=== PATIENT | female | born 1960 | race Caucasian/White ===

== ENCOUNTER 2017-09-19 07:12 | Day surgery (SDC) | payer MEDICARE, OTHER ==
[2017-09-11 12:21] LABS: APPEARANCE,URINE SLIGHTLY-CLOUDY; BILIRUBIN,URINE NEGATIVE (NEGATIVE); GLUCOSE, URINE NEGATIVE (NEGATIVE); KETONES,URINE NEGATIVE (NEGATIVE); LEUKOCYTE ESTERASE,URINE NEGATIVE (NEGATIVE); NITRITE,URINE NEGATIVE (NEGATIVE); PROTEIN,URINE NEGATIVE (NEGATIVE); UROBILINOGEN,URINE NEGATIVE mg/dL (<2.0)
[2017-09-11 12:28] LABS: ABSOLUTE BASOPHILS # (AUTO) 0.1 10^3/uL (0.0-0.2); ABSOLUTE EOSINOPHILS # (AUTO) 0.1 10^3/uL (0.0-0.6); ABSOLUTE MONOCYTES (AUTO) 0.5 10^3/uL (0.1-1.4); ABSOLUTE NEUT (AUTO) 4.6 10^3/uL (1.7-8.2); BASOPHILS % (AUTO) 1.1 % (0-2); EOSINOPHILS % (AUTO) 1.7 % (0-6); HEMATOCRIT 40.6 % (36.0-47.0); HEMOGLOBIN 13.6 g/dL (12.0-15.5); HGB HCT DIFFERENCE 0.2; MEAN CORPUSCULAR HEMOGLOBIN 28.3 pg (27.0-33.4); MEAN CORPUSCULAR HGB CONC 33.5 g/dL (32.0-36.0); MEAN CORPUSCULAR VOLUME 84 fl (80-97); MONOCYTES % (AUTO) 6.7 % (3-13); RED BLOOD COUNT 4.81 10^6/uL (3.72-5.28); RED CELL DISTRIBUTION WIDTH 13.5 % (11.5-14.0); SEGMENTED NEUTROPHILS % (AUTO) 62.5 % (42-78); WHITE BLOOD COUNT 7.3 10^3/uL (4.0-10.5)
[2017-09-11 12:51] LABS: ANION GAP 12 (5-19); BLOOD UREA NITROGEN 11 mg/dL (7-20); CALCIUM 9.4 mg/dL (8.4-10.2); CARBON DIOXIDE 30 mmol/L (22-30); CHLORIDE 101 mmol/L (98-107); CREATININE RESULT 0.75 mg/dL (0.52-1.25); GLUCOSE 96 mg/dL (75-110); POTASSIUM 4.7 mmol/L (3.6-5.0); SODIUM 142.7 mmol/L (137-145)
--- NOTE | 2017-09-11 13:16 | RADIOLOGY REPORT (SQ) ---
EXAM DESCRIPTION: CHEST PA/LATERAL COMPLETED DATE/TIME: 09/11/2017 11:45 am REASON FOR STUDY: PRE-OP COMPARISON: None. TECHNIQUE: Frontal and lateral radiographic views of the chest acquired. NUMBER OF VIEWS: Two view. LIMITATIONS: None. FINDINGS: LUNGS AND PLEURA: No opacities, masses or pneumothorax. No pleural effusion. MEDIASTINUM AND HILAR STRUCTURES: No masses or contour abnormalities. HEART AND VASCULAR STRUCTURES: Heart normal size. No evidence for failure. BONES: No acute findings. HARDWARE: No indwelling lines. Bilateral surgical clips related to the breasts. OTHER: No other significant finding. IMPRESSION: NO SIGNIFICANT RADIOGRAPHIC FINDING IN THE CHEST. TECHNICAL DOCUMENTATION: JOB ID: [id number] [employer]- All Rights Reserved
--- NOTE | 2017-09-11 13:23 | EKG REPORT ---
SEVERITY:- ABNORMAL ECG - SINUS RHYTHM LEFT VENTRICULAR HYPERTROPHY : Confirmed by: Gallo Ramirez MD 11-Sep-2017 13:22:20
[~2017-09-19 07:12] MED LIST: ACETAMINOPHEN 100 ML IV ONE; CEFAZOLIN 2 GM/D5W RTU 2 GM/50 ML RTUPB IV PRN; FENTANYL CITRATE INJ/PF 100 MCG/2 ML AMPUL ONE; HYDROMORPHONE HCL INJ/PF 2 MG/ML AMPULE ONE; LACTATED RINGERS 1000 ML IV PRN; LIDOCAINE 0.5% INJ-PF (5 MG/ML) 50 ML SDV SUBCUT PRN; MIDAZOLAM 2 MG/2 ML INJ ONE; PROPOFOL INJ 200 MG/20 ML VIAL IV ONE
[2017-09-19] MEDS ORDERED: SUCCINYLCHOLINE CHLORIDE INJ 200 MG/10 ML VIAL ONE (08:45)
[2017-09-19] MEDS ORDERED: LIDOCAINE 2% INJ-PF (20 MG/ML) 2 ML AMPUL ONE (08:45)
[2017-09-19] MEDS ORDERED: ONDANSETRON HCL INJ/PF 4 MG/2 ML SDV ONE (08:45)
[2017-09-19] MEDS ORDERED: DEXAMETHASONE SOD PHOSPHATE INJ 4 MG/1 ML VIAL ONE (08:45)
[2017-09-19] MEDS ORDERED: ONDANSETRON HCL INJ/PF 4 MG/2 ML SDV IV PRN ×2 (10:04→12:21)
[2017-09-19] MEDS ORDERED: MEPERIDINE HCL/PF INJ 25 MG/1 ML DISP.SYRIN IV PRN (10:04)
[2017-09-19] MEDS ORDERED: FENTANYL CITRATE INJ/PF 100 MCG/2 ML AMPUL IV PRN ×3 (10:04)
[2017-09-19] MEDS ORDERED: DIPHENHYDRAMINE HCL 50 MG/ML VIAL IV PRN (10:04)
[2017-09-19] MEDS ORDERED: PROMETHAZINE HCL INJ 25 MG/1 ML VIAL IV PRN (10:04)
[2017-09-19] MEDS ORDERED: LABETALOL HCL INJ 20 MG/4 ML DISP.SYRIN IV PRN (10:04)
[2017-09-19] MEDS: BUPIVACAINE HCL 0.5 % INJ/PF 30 ML SDV ONE ×2 (11:00→11:07)
--- NOTE | 2017-09-19 12:18 | RADIOLOGY REPORT (SQ) ---
EXAM DESCRIPTION: NO CHG FLUORO; WRIST RIGHT 2 VIEWS COMPLETED DATE/TIME: 09/19/2017 11:42 am REASON FOR STUDY: RT WRIST OSTEOTOMY SHORTENING M66.249 SPONTANEOUS RUPTURE OF EXTENSOR TENDONS, UNSPECIFIED Z79.01 [facility] (CURRENT) USE OF ANTICOAGULANTS COMPARISON: None. FLUOROSCOPY TIME: 2 minutes 20 seconds 8 images saved to PACS. TECHNIQUE: Intra-operative images acquired during surgical procedure to evaluate progress. NUMBER OF IMAGES: 8 LIMITATIONS: None. FINDINGS: Internal fixation distal radial fracture with orthopedic plate and screw device. IMPRESSION: IMAGE(S) OBTAINED DURING PROCEDURE. COMMENT: Quality ID 145: Final reports for procedures using fluoroscopy that document radiation exp osure indices, or exposure time and number of fluorographic images (if radiation exposure indices are not available) Please consult full operative report of the attending physician for description of the procedure. TECHNICAL DOCUMENTATION: JOB ID: [id number] [employer]- All Rights Reserved
--- NOTE | 2017-09-19 12:18 | RADIOLOGY REPORT (SQ) ---
EXAM DESCRIPTION: NO CHG FLUORO; WRIST RIGHT 2 VIEWS COMPLETED DATE/TIME: 09/19/2017 11:42 am REASON FOR STUDY: RT WRIST OSTEOTOMY SHORTENING M66.249 SPONTANEOUS RUPTURE OF EXTENSOR TENDONS, UNSPECIFIED Z79.01 [facility] (CURRENT) USE OF ANTICOAGULANTS COMPARISON: None. FLUOROSCOPY TIME: 2 minutes 20 seconds 8 images saved to PACS. TECHNIQUE: Intra-operative images acquired during surgical procedure to evaluate progress. NUMBER OF IMAGES: 8 LIMITATIONS: None. FINDINGS: Internal fixation distal radial fracture with orthopedic plate and screw device. IMPRESSION: IMAGE(S) OBTAINED DURING PROCEDURE. COMMENT: Quality ID 145: Final reports for procedures using fluoroscopy that document radiation exp osure indices, or exposure time and number of fluorographic images (if radiation exposure indices are not available) Please consult full operative report of the attending physician for description of the procedure. TECHNICAL DOCUMENTATION: JOB ID: [id number] [employer]- All Rights Reserved
[2017-09-19] MEDS ORDERED: MORPHINE SULFATE 10 MG/ML INJ IV PRN (12:21)
[2017-09-19] MEDS ORDERED: HYDROMORPHONE HCL INJ/PF 2 MG/ML AMPULE IV PRN (12:21)
[2017-09-19] MEDS: FENTANYL CITRATE INJ/PF 100 MCG/2 ML AMPUL ONE ×2 (12:25→12:30)
--- NOTE | 2017-09-19 12:35 | Operative Report ---
Operative Report DATE OF SURGERY: 09/19/17 PREOPERATIVE DIAGNOSIS: Right distal radius malunion. Spontaneous EPL rupture POSTOPERATIVE DIAGNOSIS: Same OPERATION: RIGHT distal radius osteotomy. RIGHT EIP to EPL tendon transfer SURGEON: RENETTA ISLAS ANESTHESIA: GA COMPLICATIONS: None ESTIMATED BLOOD LOSS: Minimal PROCEDURE: Indication for above procedure: 57-year-old female who sustained a distal radius fracture which was treated conservatively years ago. Since that time she has had discomfort with pain along with limited motion of her wrist. Most recently she noticed the inability to extend her thumb. At that point we discussed treatment options radiographs demonstrate distal radius malunion thus the decision was made to proceed with operative intervention which included radial osteotomy and EIP to EPL tendon transfer. Risks and benefits of the surgical procedure were explained to the patient who verbalized understanding consented for the procedure. Procedure In Detail: Patient was seen and evaluated in the preoperative holding area. The Right upper extremity was initialized and marked. Patient received 2g of Ancef IV for bacterial prophylaxis. Patient was taken back to the operative room where transferred to the operative table and placed under general anesthesia. Once they were adequately anesthetized and a nonsterile tourniquet was placed on his upper extremity. A surgical team debriefing was performed ensuring all instrumentation was available, the surgical procedure was discussed with possible concerns reviewed. The upper extremity was prepped with chlorhexidine and alcohol and draped in a sterile fashion. A timeout was done identifying correct patient, procedure and extremity everyone in attendance agree with this and verbalized no concerns.The extremity was exsanguinated the tourniquet was inflated to 250 mmHg. A longitudinal skin incision was made via a volar approach of [place] along the FCR tendon sheath. The FCR tendon sheath was opened and the FCR retracted ulnarly, the palmar cutaneous branch of the median nerve was identified and protected throughout the entirety of the case. The radial artery was identified and retracted radially. Blunt dissection was performed to the FPL which was carefully sweeped ulnarly. This brought me to the pronator quadratus which was elevated off of the distal radius via sharp dissection with a 15 blade to allow later repair. The brachioradialis was sharply elevated from the distal radius with special attention to the underlying first dorsal compartment tendons. Previous fracture was identified. C-arm fluoroscopy was obtained confirming volar shift of the distal radius and loss of radial inclination and positive ulnar variance. I then proceeded with placement of K wires adjacent parallel to the articular surface sagittally and coronally for a osteotomy template. C-arm fluoroscopy was obtained confirming appropriate osteotomy and location with a sagittal saw these cuts were made through the volar cortex but not through the dorsal cortex saline was used to decrease bone necrosis. With an osteotome to carefully elevated the fracture performing a opening wedge osteotomy hinging on the dorsal cortex. A bump was placed posteriorly to restore the sagittal alignment and a lamina non licensed nuclear plant operator was used to radially to restore radial height. C-arm fluoroscopy was obtained confirming christianity of the distal radius to more a anatomic position. I then placed the Acumed 3 hole distal radius plate this was secured into position C arm fluoroscopy was obtained confirming appropriate placement of the plate. The plate was then fixated distally with bicortical fixation and a reduction tenaculum to bring the plate securely to the volar cortex to avoid postoperative flexor tendon irritation. I then completed fixation with 3 additional locking screws. The radial styloid screws were then drilled and filled with the appropriate sized locking screw under C-arm fluoroscopy. The previous bicortical screw was removed and the appropriate size locking screw secured into position. I then fixated the proximal aspect of the plate down to bone with a bone clamp maintaining christianity of patient's volar tilt this was confirmed with C-arm fluoroscopy. I then placed 2 bicortical screws securing the plate proximally and an additional locking screw in the most distal hole. C -arm fluoroscopy was obtained confirming christianity of radial height, inclination and volar tilt. The wound was then copiously irrigated with normal saline. The osteotomy void was then filled with 5cc of Vitoss bone supplement. There was no evidence of DRUJ instability on examination, Negative Dsouza's test , No crepitus with range of motion at the radiocarpal joint or DRUJ. I then closed the pronator quadratus with interrupted 3-0 Monocryl suture. Tourniquet was then deflated any peripheral venous bleeding was coagulated bipolar cautery. Good peripheral perfusion was confirmed. Subcutaneous tissues were closed with interrupted 4-0 Monocryl suture. The skin was closed with a running horizontal mattress 3-0 nylon suture. I then turned my attention to the tendon transfer. Extremity was once again exsanguinated and tourniquet inflated to 250 mmHg. Longitudinal skin incision was made over Gio's tubercle. Branches of the superficial radial nerve were identified and retracted. Blunt dissection was performed the remnant of the EPL tendon was identified within the groove but there was no intact remaining fibers. Portions of the EPL were scarred down to the dorsal cortex. Nonviable tendon was then debrided. A longitudinal skin incision was made over the MCP joint of the thumb blunt dissection performed. EPL tendon was identified and was scarred to the adjacent tissue. Nonviable remaining tendon was excised leaving normal-appearing EPL tendon at the level of the MP joint. A transverse skin incision was made over the index MP joint. Blunt dissection performed the ulnar most EIP tendon was identified. The EIP tendon was then identified within the fourth dorsal compartment and thus released at the level of the MP joint and tunneled through my dorsal wrist incision. With a tendon grasper the EIP tendon was tunneled under subcutaneous tissue to the level of the thumb MP joint. While my assistant kitchen manager held the wrist in extension of 20 and the thumb MP and IP joints in full extension a total of 4 Pulvertaft weave's were placed into the room and EPL tendon. The thumb was once again tensioned and secured with horizontal mattress 4-0 FiberWire suture. Once fixation was complete patient had good tenodesis with extension of the thumb and full wrist flexion and flexion of the thumb with wrist extension to the thumb IP joint. Remnant tendon was then excised. Wound was copiously irrigated with normal saline. The remnant of the EIP was secured to the EDC tendon with 3-0 Vicryl suture. Patient had no evidence of extensor lag with wrist tenodesis at the index MP/IP joints. Subcutaneous tissues were closed with 4-0 Monocryl suture. Skin was closed with running nylon and interrupted 3-0 nylon. 30 mL of 0.5% Marcaine were injected for postoperative pain control. Wound was dressed with Xeroform 4 x 4's and patient was placed in a thumb spica splint maintaining wrist extension of 20 and full MP and IP joint extension. Tourniquet was deflated. Sponge counts, instrument counts, needle counts counts were correct. Patient was then awoken from anesthesia. Transferred from the operating room table to the operating room stretcher. There was no intraoperative complications patient tolerated procedure well stable to PACU. Postoperative plan: Patient will follow-up 2 weeks postoperatively will obtain radiographs at that time. She will be placed in a thumb spica cast for a total of 4 weeks and then begin occupational therapy as per EIP/EPL tendon transfer.
--- NOTE | 2017-09-19 12:35 | PDOC DISCHARGE SUMMARY ---
Discharge Summary (SDC) - Discharge Final Diagnosis: Distal radius malunion Spontaneous EPL rupture Date of Surgery: 09/19/17 Discharge Date: 09/19/17 Condition: Good Treatment or Instructions: Schedule Follow Up w/ Dr. Tim Stroud @ [facility] to be seen in 10-14 days or as scheduled [place]: [place]: [place]: Ice and elevate Keep splint clean/dry/intact. If your fingers become numb please unwrap the Laith wrap but leave the splint in place, if the sensation does not return within 30 minutes please return to the emergency department. May begin finger range of motion attempting to make full fist. Please use ibuprofen (Motrin or Advil) 600-800 mg every 8 hours as needed for pain or fever. You may also use acetaminophen (Tylenol) 1000 mg every 4-6 hours as needed for pain or fever. Please be aware that many medications contain acetaminophen, do not exceed a total of 1000 mg of acetaminophen every 6 hours. If ibuprofen and acetaminophen are not sufficient for your pain you may take the Percocet. Please be aware that the Percocet does contain Tylenol. Stool softener of choice when on pain medication. Prescriptions: Oxycodone HCl/Acetaminophen [Percocet 7.5-325 mg Tablet] 1 - 2 tab PO ASDIR PRN #55 tab PRN Reason: Referrals: MARLIN SANCHEZ MD [Primary Care Provider] - Discharge Diet: As Tolerated Respiratory Treatments at Home: Deep Breathing/Coughing, Incentive Spirometer Discharge Activity: No Lifting Over 10 Pounds, No Lifting/Push/Pulling Report the Following to Your Physician Immediately: Increase in Pain, Fever over 101 Degrees, Unusual Bleeding, Redness, Swelling, Warmth, Increased Soreness
[2017-09-19] MEDS ORDERED: HYDROMORPHONE HCL INJ/PF 2 MG/ML AMPULE ONE (12:39)
[2017-09-19] MEDS ORDERED: OXYCODONE-ACETAMINOPHEN 5-325 MG TABLET ONE (13:27)
[2017-09-19 14:59] VITALS: BP 133/87
== END 2017-09-19 14:50 | disposition home or self-care (01) ==
LOC: OROUT 07:12
PROVIDERS: ATTEND Orthopaedic Surgery
PROC: 0LX50ZZ Transfer Right Lower Arm and Wrist Tendon, Open Approach (ICD-10-PCS; 2017-09-19)
PROC: 0PSH04Z Reposition Right Radius with Internal Fixation Device, Open Approach (ICD-10-PCS; principal; 2017-09-19 09:00)
DX: S52.531P Colles' fracture of right radius, subsequent encounter for closed fracture with malunion (principal); X58.XXXD Exposure to other specified factors, subsequent encounter; M66.249 Spontaneous rupture of extensor tendons, unspecified hand; E03.9 Hypothyroidism, unspecified; J44.9 Chronic obstructive pulmonary disease, unspecified; F98.8 Other specified behavioral and emotional disorders with onset usually occurring in childhood and adolescence; E16.2 Hypoglycemia, unspecified; M47.9 Spondylosis, unspecified; G89.29 Other chronic pain; Z79.01 Long term (current) use of anticoagulants
CPT/HCPCS: 93005; 36415; 85025; 80048; 81001; 71020; 73100; 93010; 25350; 25320; C1713 ×2; C1898; J2250; J1100; J3010; A9270; J1170; J0330; J2405; J2704; J0690; J0131; J3490; 01830